=== PATIENT | male | born 1950 | race Caucasian/White ===

== ENCOUNTER 2020-01-29 12:57 | Inpatient (IN) | payer OTHER, MEDICAID ==
[~2020-01-29] VITALS: Ht 177.8 cm; Wt 83.1 kg
[2020-01-29] MEDS ORDERED: SODIUM CHLORIDE 0.9% 1,000 ML IV ONE ×3 (13:31→16:15)
[2020-01-29 13:54] LABS: Basophils # (auto) 0 10 ^3/uL (0-0.2); Eosinophils # (auto) 0 10 ^3/uL (0-0.8); Monocytes # (auto) 1.1 10 ^3/uL (0-1.3); Neutrophils # (auto) 10.3 10 ^3/uL (1.6-8.6); White Blood Cell 12.1 10^3/uL (4.4-10.8)
[2020-01-29 13:56] LABS: Basophils % (auto) 0.1 % (0.0-2.0); Hematocrit 35.1 % (41.0-53.0); Hemoglobin 12.1 g/dL (13.5-17.5); Lymphocytes # (auto) 0.8 10 ^3/uL (0.4-5.4); Lymphocytes % (auto) 6.8 % (10.0-50.0); Mean Corpuscular Hemoglobin 35.3 pg (28.0-32.0); Mean Corpuscular Hgb Conc. 34.3 g/dL (32.0-36.0); Mean Corpuscular Volume 102.8 fL (80.0-100.0); Monocytes % (auto) 8.7 % (0.0-12.0); Neutrophils % (auto) 84.4 % (37.0-80.0); Nucleated Red Blood Cells % 0.1 %; Platelet Count (auto) 213 10^3/uL (140-450); Red Blood Cells 3.41 10^6/uL (4.5-5.90); Red Cell Distribution Width 13.4 % (11.8-14.3)
[2020-01-29] MEDS: NOREPINEPHRINE 8 MG/250ML KIT 250 ML IV SCH (13:56)
[2020-01-29 14:10] LABS: INR 1.2 (0.9-1.15); Partial Thromboplastin Time 35.3 sec (23.64-32.05)
[2020-01-29 14:18] LABS: Albumin 2.8 g/dL (3.4-5.0); Potassium 5.5 mmol/L (3.5-5.1)
[2020-01-29 14:19] LABS: Lactic Acid w/Reflex 2.9 mmol/L (0.4-2.0)
[2020-01-29 14:22] LABS: BUN/Creatinine Ratio 10.2; Bilirubin, Total 0.2 mg/dL (0.2-1.0); Total Protein 6.6 g/dL (6.4-8.2)
[2020-01-29] MEDS ORDERED: LACTULOSE 20Gm/30ML SOLN PO ONE (14:30)
[2020-01-29] MEDS ORDERED: ONDANSETRON HCL 4 MG/2 ML VIAL IV ONE (15:00)
[2020-01-29] MEDS ORDERED: CARV25TA55 PO (15:45)
[2020-01-29] MEDS ORDERED: FURO40TA4 PO (15:47)
[2020-01-29] MEDS ORDERED: SPIR25TA8 PO (15:47)
[2020-01-29] MEDS ORDERED: ASP81EC PO (15:51)
[2020-01-29] MEDS ORDERED: SIMV-8 PO (15:51)
[2020-01-29] MEDS ORDERED: METF-370 PO (15:51)
[2020-01-29] MEDS ORDERED: ENAL2.5T PO (15:51)
[2020-01-29] MEDS ORDERED: MORPHINE SULF INJ 2 MG/ML SYRINGE 1ML IV PRN (17:30)
[2020-01-29] MEDS ORDERED: VANCOMYCIN PER PHARMACY 0 MG IV SCH (17:30)
[2020-01-29] MEDS ORDERED: DEXTROSE (50%) 50ML SYRG IV PRN (17:30)
[2020-01-29] MEDS ORDERED: SODIUM BICARBONATE 8.4 % INJ 50ML VIAL IV ONE (17:30)
[2020-01-29] MEDS ORDERED: NITROGLYCERIN 0.4 MG SL TAB SL PRN (17:30)
[2020-01-29] MEDS ORDERED: SODIUM ZIRCONIUM CYCL 10 GM PAK PO ONE (17:30)
[2020-01-29] MEDS ORDERED: CALCIUM GLUC 4.65meq/50ml D5AE 50 ML IV ONE (17:30)
[2020-01-29] MEDS ORDERED: FOLIC ACID 1 MG in D5W 5% 50 ML IV ONE (17:30)
[2020-01-29] MEDS ORDERED: InsuLIN REG 1unit/0.01ml Soln (100units/ml) IV ONE (17:30)
[2020-01-29] MEDS ORDERED: THIAMINE 100mg/ml INJ (200mg/2ml VIAL) IV ONE (17:30)
[2020-01-29] MEDS ORDERED: DEXTROSE (50%) 50ML SYRG IV ONE (17:30)
[2020-01-29] MEDS: VASOPRESSIN 50 UNITS in D5W 5% 247.5 ML IV SCH (18:22)
[2020-01-29] MEDS ORDERED: VANCOMYCIN 1GM/250ML 250 ML IV ONE (18:30)
[2020-01-29] MEDS: cefTRIAXone 1GM/50ML D5W 50 ML IV SCH (18:30)
[2020-01-29] MEDS: SODIUM BICARBONATE 50ML VIAL 150 ML in D5W 5% 1,000 ML IV SCH (18:54)
[2020-01-29 22:00] VITALS: BP 106/61
[2020-01-29] MEDS: ACCU-CHEK COMFORT CURVE STRIP VI SCH (22:00)
[2020-01-29] MEDS ORDERED: ALBUTEROL SULF 2.5 MG/0.5ML(0.5%) NEB SOLN NEB PRN (22:15)
[2020-01-29] MEDS ORDERED: IPRATROPIUM BROM 0.5 MG/2.5ML INH SOL NEB PRN (22:15)
[2020-01-29 22:32] LABS: Urine Bacteria FEW /hpf (None Seen); Urine Blood TRACE /uL (Negative); Urine Hyaline Cast FEW /lpf (0 - 2); Urine Mucus FEW (None Seen); Urine WBC <1 /hpf (0 - 3)
[2020-01-29 23:01] VITALS: BP 113/63
[2020-01-29 23:01] LABS: Creatinine, Urine 66 mg/dL (30.0-125.0); Sodium Urine 74 mmol/L (40-220)
[2020-01-29 23:16] VITALS: BP 100/82
[2020-01-29] MEDS: metroNIDAZOLE 500MG/100ML 100 ML IV SCH (23:20)
[2020-01-29] MEDS ORDERED: ONDANSETRON HCL 4 MG/2 ML VIAL IV PRN (23:30)
[2020-01-29] MEDS ORDERED: LORazepam 2MG/ML-1ML VIAL IV PRN (23:30)
[2020-01-29 23:31] VITALS: BP 114/63
[2020-01-29] MEDS ORDERED: ONDANSETRON HCL 4 MG/2 ML VIAL ONE (23:31)
[2020-01-29] MEDS: InsuLIN REG 1unit/0.01ml Soln (100units/ml) SC SCH (23:33)
[2020-01-29 23:45] VITALS: BP 111/73
[2020-01-29] MEDS: NICOTINE 14 MG/24HR TOPICAL PATCH TD SCH (23:45)
[2020-01-29] MEDS: PANTOPRAZOLE 40 MG/10 ML VIAL INJ IV SCH (23:45)
[2020-01-29] MEDS: TEMAZEPAM 15 MG CAP PO PRN (23:55)
[2020-01-30] VITALS (89 sets, daily range): BP systolic 87–119; BP diastolic 45–89
[2020-01-30] MEDS: NOREPINEPHRINE 8 MG/250ML KIT 250 ML IV SCH ×3 (00:38→18:50)
[2020-01-30] MEDS ORDERED: FUROSEMIDE 40 MG/4 ML VIAL IV ONE (01:00)
[2020-01-30] MEDS ORDERED: FUROSEMIDE 40 MG/4 ML VIAL ONE (01:00)
[2020-01-30 04:30] LABS: Basophils # (auto) 0 10 ^3/uL (0-0.2); Basophils % (auto) 0.1 % (0.0-2.0); Eosinophils # (auto) 0 10 ^3/uL (0-0.8); Hematocrit 33.3 % (41.0-53.0); Hemoglobin 11.1 g/dL (13.5-17.5); Lymphocytes % (auto) 6.6 % (10.0-50.0); Mean Corpuscular Hemoglobin 33.6 pg (28.0-32.0); Mean Corpuscular Hgb Conc. 33.2 g/dL (32.0-36.0); Monocytes # (auto) 1.9 10 ^3/uL (0-1.3); Monocytes % (auto) 12.1 % (0.0-12.0); Neutrophils # (auto) 12.8 10 ^3/uL (1.6-8.6); Neutrophils % (auto) 81.2 % (37.0-80.0); Platelet Count (auto) 252 10^3/uL (140-450); Red Blood Cells 3.29 10^6/uL (4.5-5.90); Red Cell Distribution Width 13.7 % (11.8-14.3); White Blood Cell 15.7 10^3/uL (4.4-10.8)
[2020-01-30 04:31] LABS: Albumin 2.5 g/dL (3.4-5.0); Calcium 7.2 mg/dL (8.5-10.1); Potassium 4.3 mmol/L (3.5-5.1)
[2020-01-30 04:32] LABS: Magnesium 1.4 mg/dL (1.6-2.6); Phosphorus 4.8 mg/dL (2.5-4.90)
[2020-01-30 04:34] LABS: Bilirubin, Total 0.2 mg/dL (0.2-1.0); Total Protein 6.1 g/dL (6.4-8.2)
[2020-01-30] MEDS: SODIUM BICARBONATE 50ML VIAL 150 ML in D5W 5% 1,000 ML IV SCH ×2 (05:00→09:28)
[2020-01-30] MEDS: metroNIDAZOLE 500MG/100ML 100 ML IV SCH ×3 (05:54→22:19)
[2020-01-30] MEDS: ACCU-CHEK COMFORT CURVE STRIP VI SCH ×4 (06:27→22:29)
[2020-01-30] MEDS: InsuLIN REG 1unit/0.01ml Soln (100units/ml) SC SCH ×4 (06:30→22:00)
[2020-01-30] MEDS: cefTRIAXone 1GM/50ML D5W 50 ML IV SCH (09:09)
[2020-01-30 09:49] LABS: Amylase 103 U/L (25-115); Lipase 213 U/L (73-393)
[2020-01-30] MEDS: NICOTINE 14 MG/24HR TOPICAL PATCH TD SCH (10:06)
[2020-01-30] MEDS: THIAMINE 100mg/ml INJ (200mg/2ml VIAL) IV SCH (10:06)
[2020-01-30] MEDS: PANTOPRAZOLE 40 MG/10 ML VIAL INJ IV SCH (10:06)
[2020-01-30] MEDS: FOLIC ACID 1 MG in D5W 5% 50 ML IV SCH (10:33)
[2020-01-30] MEDS ORDERED: VANCOMYCIN 1GM/250ML 250 ML IV ONE (11:00)
[2020-01-30] MEDS: MAGNESIUM SULFATE 1GM/100ML 100 ML IV SCH ×2 (14:45→16:45)
[2020-01-30] MEDS: SODIUM BICARBONATE 50ML VIAL 50 ML in SOD CHL 0.45% 1,000 ML IV SCH (16:44)
[2020-01-30] MEDS: VASOPRESSIN 50 UNITS in D5W 5% 247.5 ML IV SCH (17:30)
[2020-01-30 19:55] LABS: Amphetamine Screen, Urine NEGATIVE (NEGATIVE); Barbiturate Scree,Urine NEGATIVE (NEGATIVE); Benzodiazephine Screen, Urine NEGATIVE (NEGATIVE); Cannabinoid Screen, Urine NEGATIVE (NEGATIVE); Cocaine Screen, Urine NEGATIVE (NEGATIVE); Opiate Scree,Urine NEGATIVE (NEGATIVE); Phencyclidine Screen, Urine NEGATIVE (NEGATIVE)
[2020-01-30 19:59] LABS: Alcohol, Urine < 3.0 mg/dL (0-5)
[2020-01-30] MEDS: TEMAZEPAM 15 MG CAP PO PRN (22:19)
[2020-01-31] VITALS (92 sets, daily range): BP systolic 79–126; BP diastolic 39–77
[2020-01-31] MEDS: SODIUM BICARBONATE 50ML VIAL 50 ML in SOD CHL 0.45% 1,000 ML IV SCH (03:00)
[2020-01-31 04:45] LABS: Basophils # (auto) 0 10 ^3/uL (0-0.2); Basophils % (auto) 0.1 % (0.0-2.0); Eosinophils # (auto) 0.1 10 ^3/uL (0-0.8); Eosinophils % (auto) 0.5 % (0.0-7.0); Lymphocytes # (auto) 1.4 10 ^3/uL (0.4-5.4); Lymphocytes % (auto) 11.8 % (10.0-50.0)
[2020-01-31 04:51] LABS: Hematocrit 28.6 % (41.0-53.0); Mean Corpuscular Hemoglobin 34.9 pg (28.0-32.0); Mean Corpuscular Volume 99.7 fL (80.0-100.0); Monocytes # (auto) 1.4 10 ^3/uL (0-1.3); Monocytes % (auto) 11.8 % (0.0-12.0); Neutrophils # (auto) 9.3 10 ^3/uL (1.6-8.6); Neutrophils % (auto) 75.8 % (37.0-80.0); Platelet Count (auto) 218 10^3/uL (140-450); Red Blood Cells 2.87 10^6/uL (4.5-5.90); Red Cell Distribution Width 13.4 % (11.8-14.3); White Blood Cell 12.2 10^3/uL (4.4-10.8)
[2020-01-31 05:03] LABS: Calcium 7.4 mg/dL (8.5-10.1); Potassium 3.5 mmol/L (3.5-5.1)
[2020-01-31 05:05] LABS: BUN/Creatinine Ratio 30.6
[2020-01-31] MEDS: metroNIDAZOLE 500MG/100ML 100 ML IV SCH ×3 (06:00→21:30)
[2020-01-31] MEDS: ACCU-CHEK COMFORT CURVE STRIP VI SCH ×4 (06:31→21:30)
[2020-01-31] MEDS: InsuLIN REG 1unit/0.01ml Soln (100units/ml) SC SCH ×4 (06:31→22:00)
[2020-01-31] MEDS: cefTRIAXone 1GM/50ML D5W 50 ML IV SCH (08:45)
[2020-01-31] MEDS: SODIUM CHLORIDE 0.9% 1,000 ML IV SCH ×2 (08:45→21:30)
[2020-01-31] MEDS: NICOTINE 14 MG/24HR TOPICAL PATCH TD SCH (10:07)
[2020-01-31] MEDS: PANTOPRAZOLE 40 MG/10 ML VIAL INJ IV SCH (10:07)
[2020-01-31] MEDS: THIAMINE 100mg/ml INJ (200mg/2ml VIAL) IV SCH (10:07)
[2020-01-31] MEDS: FOLIC ACID 1 MG in D5W 5% 50 ML IV SCH (11:00)
[2020-01-31] MEDS: NOREPINEPHRINE 8 MG/250ML KIT 250 ML IV SCH (11:08)
[2020-01-31] MEDS ORDERED: ALLOPURINOL 100 MG TAB PO ONE (11:30)
[2020-02-01] VITALS (62 sets, daily range): BP systolic 77–122; BP diastolic 44–83
[2020-02-01 03:43] LABS: Basophils # (auto) 0 10 ^3/uL (0-0.2); Basophils % (auto) 0.4 % (0.0-2.0); Eosinophils # (auto) 0.1 10 ^3/uL (0-0.8); Hematocrit 28.8 % (41.0-53.0); Hemoglobin 10.1 g/dL (13.5-17.5); Lymphocytes # (auto) 1.4 10 ^3/uL (0.4-5.4); Lymphocytes % (auto) 13.8 % (10.0-50.0); Mean Corpuscular Hemoglobin 35.4 pg (28.0-32.0); Mean Corpuscular Hgb Conc. 35.2 g/dL (32.0-36.0); Mean Corpuscular Volume 100.6 fL (80.0-100.0); Monocytes # (auto) 1.1 10 ^3/uL (0-1.3); Neutrophils # (auto) 7.3 10 ^3/uL (1.6-8.6); Neutrophils % (auto) 73.8 % (37.0-80.0); Nucleated Red Blood Cells % 0.1 %; Platelet Count (auto) 208 10^3/uL (140-450); Red Blood Cells 2.87 10^6/uL (4.5-5.90); Red Cell Distribution Width 13.8 % (11.8-14.3); White Blood Cell 9.9 10^3/uL (4.4-10.8)
[2020-02-01 03:59] LABS: BUN/Creatinine Ratio 27.3; Calcium 7.6 mg/dL (8.5-10.1); Potassium 3.6 mmol/L (3.5-5.1)
[2020-02-01] MEDS: InsuLIN REG 1unit/0.01ml Soln (100units/ml) SC SCH ×4 (06:08→21:31)
[2020-02-01] MEDS: ACCU-CHEK COMFORT CURVE STRIP VI SCH ×4 (06:08→21:31)
[2020-02-01] MEDS: cefTRIAXone 1GM/50ML D5W 50 ML IV SCH (09:24)
[2020-02-01] MEDS: ALLOPURINOL 100 MG TAB PO SCH (09:49)
[2020-02-01] MEDS: THIAMINE 100mg/ml INJ (200mg/2ml VIAL) IV SCH (09:49)
[2020-02-01] MEDS: PANTOPRAZOLE 40 MG/10 ML VIAL INJ IV SCH (09:49)
[2020-02-01] MEDS: SODIUM CHLORIDE 0.9% 1,000 ML IV SCH (09:49)
[2020-02-01] MEDS: NICOTINE 14 MG/24HR TOPICAL PATCH TD SCH (09:55)
[2020-02-01] MEDS: FOLIC ACID 1 MG in D5W 5% 50 ML IV SCH (11:51)
[2020-02-01] MEDS: FAMOTIDINE 20 MG TAB PO SCH (21:31)
[2020-02-02 06:06] VITALS: BP 109/61
[2020-02-02] MEDS: InsuLIN REG 1unit/0.01ml Soln (100units/ml) SC SCH ×2 (07:00→11:30)
[2020-02-02] MEDS: ACCU-CHEK COMFORT CURVE STRIP VI SCH ×2 (07:02→11:30)
[2020-02-02 08:18] LABS: Basophils # (auto) 0 10 ^3/uL (0-0.2); Basophils % (auto) 0.2 % (0.0-2.0); Eosinophils # (auto) 0 10 ^3/uL (0-0.8); Hemoglobin 10.1 g/dL (13.5-17.5); Lymphocytes # (auto) 0.7 10 ^3/uL (0.4-5.4); Neutrophils # (auto) 5.4 10 ^3/uL (1.6-8.6); Red Cell Distribution Width 13.7 % (11.8-14.3)
[2020-02-02 08:19] LABS: Eosinophils % (auto) 0.4 % (0.0-7.0); Hematocrit 29.5 % (41.0-53.0); Lymphocytes % (auto) 9.7 % (10.0-50.0); Mean Corpuscular Hemoglobin 35.1 pg (28.0-32.0); Mean Corpuscular Hgb Conc. 34.3 g/dL (32.0-36.0); Mean Corpuscular Volume 102.1 fL (80.0-100.0); Monocytes % (auto) 14.6 % (0.0-12.0); Neutrophils % (auto) 75.1 % (37.0-80.0); Platelet Count (auto) 208 10^3/uL (140-450); Red Blood Cells 2.88 10^6/uL (4.5-5.90); White Blood Cell 7.2 10^3/uL (4.4-10.8)
[2020-02-02 08:32] LABS: Calcium 7.3 mg/dL (8.5-10.1); Potassium 3.3 mmol/L (3.5-5.1)
[2020-02-02 08:34] LABS: BUN/Creatinine Ratio 18.7
[2020-02-02 09:00] VITALS: BP 132/76
[2020-02-02] MEDS ORDERED: POTASSIUM CHL 20 Meq TABLET PO ONE (09:30)
[2020-02-02] MEDS ORDERED: THIAMINE HCL 100 MG TAB PO SCH (10:00)
[2020-02-02] MEDS ORDERED: FOLIC ACID 1 MG TAB PO SCH (10:00)
[2020-02-02] MEDS: NICOTINE 14 MG/24HR TOPICAL PATCH TD SCH (10:07)
[2020-02-02] MEDS: FAMOTIDINE 20 MG TAB PO SCH (10:09)
[2020-02-02] MEDS: ALLOPURINOL 100 MG TAB PO SCH (10:10)
[2020-02-02] MEDS ORDERED: FOLI1TAB6 PO (10:25)
[2020-02-02] MEDS ORDERED: FAM20T PO (10:25)
[2020-02-02] MEDS ORDERED: THIA100T10 PO (10:25)
[2020-02-02] MEDS ORDERED: ALL100T PO (10:25)
[2020-02-02 13:00] VITALS: BP 106/70
== END 2020-02-02 16:00 | disposition home or self-care (01) | DRG 871 ==
LOC: EDBD 12:57 → ER 12:57 → TELE 12:58 → ICU WEST 22:40 → EAST 02-01 15:53
PROVIDERS: ADMIT Nurse Practitioner Acute Care; ATTEND Internal Medicine
PROC: 02HV33Z Insertion of Infusion Device into Superior Vena Cava, Percutaneous Approach (ICD-10-PCS; principal; 2020-01-29)
DX: A41.9 Sepsis, unspecified organism (principal); N17.0 Acute kidney failure with tubular necrosis; R65.21 Severe sepsis with septic shock; E43 Unspecified severe protein-calorie malnutrition; E87.1 Hypo-osmolality and hyponatremia; I50.22 Chronic systolic (congestive) heart failure; J44.1 Chronic obstructive pulmonary disease with (acute) exacerbation; I42.9 Cardiomyopathy, unspecified; D53.9 Nutritional anemia, unspecified; E11.9 Type 2 diabetes mellitus without complications; E66.9 Obesity, unspecified; E78.5 Hyperlipidemia, unspecified; E83.42 Hypomagnesemia; E86.1 Hypovolemia; E87.5 Hyperkalemia; F10.20 Alcohol dependence, uncomplicated; K72.90 Hepatic failure, unspecified without coma; D18.03 Hemangioma of intra-abdominal structures; Z68.26 Body mass index [BMI] 26.0-26.9, adult
CPT/HCPCS: 36415; 36556; 36600; 70450; 71045; 74176; 76705; 80048; 80053; 80202; 80307; 81001; 82140; 82150; 82570; 82805; 82962; 83036; 83605; 83690; 83735; 83880; 83935; 84100; 84132; 84300; 84484; 84550; 85025; 85610; 85730; 87040; 87081; 87086; 87804; 93005; 93306; 94640; 94660; 96361; 96365; 96367; 96375; 97163; 99291; C9113; G0378; J0610; J0696; J1815; J2405; J3490; J7060